=== PATIENT | male | born 1960 | race Caucasian/White ===

== ENCOUNTER → 2017-01-28 | Outpatient (CLI) | payer OTHER ==
[~2017-01-28] MED LIST: ALBUTEROL17 GM INH; ALLEGRA PO; ALLERGY SHOT; ASPIRIN325 M1 PO; ASPIRIN81 MG PO; BENZONATATE PO; CERTAGEN PO; CLARITIN D PO; CLARITIN R10 MG REDI PO; CLARITIN10 M2 PO; CRESTOR PO; DILTIAZEM 24HR120 MG PO; DOCUSATE SODIU100 MG PO; FENOFIBRATE134 MG PO; FERROUS GL324 ( 36 ) PO; HYCODAN60 ML 5MG/ PO; HYDROCODON-ACE1 EAC5 PO; HYDROXYZINE HCL10 MG PO; IBUPROFEN800 MG PO; INVOKANA300 MG PO; JANUVIA PO; KCL PO; LIPOFEN50 MG PO; LO-DOSE ASPIRIN81 M1 PO; LORTAB 5/500 TA1 TA1; LORTAB 5/500 TA1 TA2; METFORMIN HCL500 M1; METOPROLOL TAR25 MG PO; MONTELUKAST SOD10 MG PO; MOTRIN400 MG PO; MULTI-DAY VITAM1 TAB PO; NEXIUM PO; NITROGLYGERIN0.4 MG SL; NITROSTAT0.4 MG SL; NORCO 10-325 TA1 TAB PO; OMEPRAZOLE20 M2 PO; OYSTER CALCIUM500 MG PO; PLAVIX PO; PREDNISONE10 MG/DOSE PO; PRILOSEC20 MG; PRILOSEC20 MG PO; PRINIVIL20 M1 PO; SINGULAIR PO; TRIPLEX PO; TUSSIONEX PENN473 ML PO; VASCEPA1 GM PO; VITAMIN D250000 UNIT PO; VITAMIN D50000 UNIT PO; ZANTAC PO; ZESTRIL10 M1 PO; ZESTRIL5 MG PO; ZITHROMAX PO; ZOCOR PO
[2017-01-28 15:16] LABS: HEMATOCRIT 48.4 % (38.0-50.0); HEMOGLOBIN 15.9 gm/dL (13.0-16.0); MEAN CORPUSCULAR HEMOGLOBIN 30.6 PG (28-34); MEAN CORPUSCULAR HGB CONC 32.9 g/dL (30-36); MEAN PLATELET VOLUME 8.6 FL (6.5-11.5); RED BLOOD COUNT 5.21 X10e (3.90-5.60); WHITE BLOOD COUNT 6.9 X10e3 (4.0-10.5)
[2017-01-28 15:47] LABS: BLOOD UREA NITROGEN 15 mg/dL (9-23); BUN/CREATININE RATIO 18.75; CALCIUM SERUM 8.9 mg/dL (8.4-10.2); CARBON DIOXIDE 24 mmol/L (22-31); CHLORIDE 103 mmol/L (100-111); CREATININE SERUM 0.8 mg/dL (0.6-1.4); GLOM FILT RATE Estimated ABOVE60 mL/min (>60); GLUCOSE FASTING 235 mg/dL (70-110); POTASSIUM 4.3 mmol/L (3.5-5.1); SODIUM 135 mmol/L (135-145)
== END | disposition home or self-care (01) ==
LOC: CAMB 13:33
PROVIDERS: Surgery
DX: Z01.812 Encounter for preprocedural laboratory examination (principal)
CPT/HCPCS: 36415; 80048; 85027

== ENCOUNTER → 2017-02-05 | Day surgery (SDC) | payer OTHER ==
--- NOTE | ~2017-02-05 | OR ---
Unit #: [id number] #: [id number] Patient: RAZ WELDON [id number] [address] [place], [place] [address] [id number] O MR#: [id number] NAME: RAZ WELDON ROOM: Date of Procedure: 02/05/2017 Admission Date: 02/05/2017 Surgeon: Eyad Fernandez Jr., M.D. : 1960 Attending Physician: Eyad Fernandez Jr., M.D. Primary Care Physician: Ninfa Solorio, [place] OPERATIVE REPORT INDICATIONS FOR PROCEDURE The patient is a 56-year-old white male, who has been having intermittent rectal bleeding. He has been worked up and noted to have evidence of large prolapsing internal hemorrhoids as well as several small external hemorrhoids. It was felt that he should have a hemorrhoidal stapling with hemorrhoidectomy. He was brought in this time for this procedure at his request. He understands the procedure including the risks including that of infection, bleeding, and recurrence of his hemorrhoids and consents. PREOPERATIVE DIAGNOSIS Bleeding internal and external hemorrhoids. POSTOPERATIVE DIAGNOSIS Bleeding internal and external hemorrhoids, noting large dilated internal hemorrhoids with two dilated external hemorrhoids. ANESTHESIA General with endotracheal intubation, 0.25% Marcaine with epinephrine as a perianal block. PROCEDURES PERFORMED Hemorrhoidal stapling with mucosectomy and external hemorrhoidectomy x2. DESCRIPTION OF PROCEDURE The patient was positioned in the supine position. After being anesthetized and intubated, he was placed in prone position, prepped and draped in routine fashion with raz-knife type position for hemorrhoidal stapling. Perianal block was performed with 0.25% Marcaine with epinephrine. An anal dilatation performed up to 4 fingerbreadths slowly. After the anal canal was dilated, the retractor was placed and the retractor was sutured in place with interrupted 2-0 silk sutures as routine. The internal retractor was placed and 0 Prolene pursestring was placed circumferentially. Additional 0 Prolene stitch was placed at the 6 o'clock position. The stapler was placed up into the rectum and the pursestring tightened around the stem of the stapler. It was then tied, stapler close fired, and removed with an excellent staple line visible. There was a small amount of oozing at the 6 o'clock position, which was controlled with [id number] 4-0 Vicryl stitch. After total hemostasis was noted, the tissue from the stapler was removed and sent to pathology. There was an excellent ring present, and the retracting device was removed when no bleeding was noted. There were two external hemorrhoids, which Unit #: [id number] #: [id number] Patient: RAZ WELDON were dilated and 2-0 chromic stitch was placed at the internal apex of the internal hemorrhoids, and the hemorrhoid was clamped to the base and then the hemorrhoid excised, and the 2-0 chromic stitch was run with a locking stitch from internal to external areas. After two external hemorrhoids removed and sent to pathology, the area was again checked. There was no evidence of any bleeding at all. The anal canal was packed with Gelfoam soaked with viscous Xylocaine. Sterile dressings were applied externally. Estimated blood loss was less than 20 mL. The patient received less than 1000 mL of crystalloid solution during the procedure. Sponges and instrument counts were correct x3. No drains were used. No complications. The patient was taken to the recovery room with stable vital signs in satisfactory condition. Dictated by... Eyad Fernandez Jr., MLeela NAVARRO/mayra TD: 02/06/2017 00:28 JOB #: [id number] OPERATIVE REPORT Page 1 of 1 X Eyad Fernandez MD X PROCEDURE OPERATIVE NOTE
== END | disposition home or self-care (01) ==
LOC: CSUR 05:29
DX: K64.8 Other hemorrhoids (principal); K64.4 Residual hemorrhoidal skin tags; J45.909 Unspecified asthma, uncomplicated; I25.10 Atherosclerotic heart disease of native coronary artery without angina pectoris; I10 Essential (primary) hypertension; E11.9 Type 2 diabetes mellitus without complications; E78.5 Hyperlipidemia, unspecified; M19.90 Unspecified osteoarthritis, unspecified site; I25.2 Old myocardial infarction; Z95.1 Presence of aortocoronary bypass graft; Z90.89 Acquired absence of other organs; Z87.19 Personal history of other diseases of the digestive system; Z88.6 Allergy status to analgesic agent; Z87.01 Personal history of pneumonia (recurrent); Z95.5 Presence of coronary angioplasty implant and graft; Z87.891 Personal history of nicotine dependence; Z79.82 Long term (current) use of aspirin; Z79.891 Long term (current) use of opiate analgesic; Z79.899 Other long term (current) drug therapy; Z91.041 Radiographic dye allergy status
CPT/HCPCS: 82947; 88304; J0330; J1100; J1170; J1885; J2250; J2710; J3010

== ENCOUNTER 2017-03-09 14:36 | Emergency (ER) | payer OTHER ==
[~2017-03-09 14:36] MED LIST changes: -PRINIVIL20 M1 PO
== END 2017-03-09 14:48 | disposition home or self-care (01) ==
LOC: SED 14:36
DX: S00.81XA Abrasion of other part of head, initial encounter (principal); F17.210 Nicotine dependence, cigarettes, uncomplicated; X58.XXXA Exposure to other specified factors, initial encounter; Y92.009 Unspecified place in unspecified non-institutional (private) residence as the place of occurrence of the external cause
CPT/HCPCS: 99283

== ENCOUNTER → 2017-03-11 | Outpatient (CLI) | payer OTHER ==
[~2017-03-11] MED LIST changes: +PRINIVIL20 M1 PO
--- NOTE | ~2017-03-11 | CR151 ---
[facility]. [facility] A Service of [facility] RADIOLOGY TEXT RESULTS PATIENT: RAZ WELDON LOCATION: [facility] : 64 UNIT #: [id number] AGE: [address]: NINFA SOLORIO APRN SEX: M ORDER DR: [id number] [address] [address] [id number] O MR#: [id number] Acc #: [id number] NAME: RAZ WELDON : 1960 SEX: M STUDY DATE/TIME: 03/11/2017 11:15 UNIT: SRAD ROOM: STUDY DESCRIPTION: CR Hip Min 2 Views Rt Attending Physician: Ninfa Solorio Aprn Referring Physician: Ninfa Solorio Aprn Ordering Physician: Ninfa Solorio Aprn Primary Care Physician: Ninfa Solorio Aprn MEDICAL IMAGING REPORT This report is preliminary unless electronic signature is present. EXAM Right hip 03/11/2017 HISTORY 56-year-old male with right hip pain since 02/28/2017 COMPARISON STUDIES None FINDINGS 3 views of the right hip demonstrate no acute fracture or dislocation. Mild degenerative changes noted in both hips. Bony pelvis intact. Sacrum and SI joints intact. Soft tissues are unremarkable. IMPRESSION No acute fracture or dislocation. Mild bilateral hip arthrosis. Dictated by... Humberto Vale M.D. THIS IS AN ELECTRONICALLY VERIFIED REPORT Humberto Vale M.D. at 03/12/2017 6:38 PM Kimmie TD: 03/11/2017 17:56 JOB #: [id number] MEDICAL IMAGING REPORT Page 1 of 1
--- NOTE | ~2017-03-11 | CR63 ---
[facility]. [facility] A Service of [facility] RADIOLOGY TEXT RESULTS PATIENT: RAZ WELDON LOCATION: [facility] : 64 UNIT #: [id number] AGE: [address]: NINFA SOLORIO APRN SEX: M ORDER DR: [id number] [address] [address] [id number] O MR#: [id number] Acc #: [id number] NAME: RAZ WELDON : 1960 SEX: M STUDY DATE/TIME: 03/11/2017 11:15 UNIT: [facility] ROOM: STUDY DESCRIPTION: CR Chest 2 View Attending Physician: Ninfa Solorio Aprn Referring Physician: Ninfa Solorio Aprn Ordering Physician: Ninfa Solorio Aprn Primary Care Physician: Ninfa Solorio Aprn MEDICAL IMAGING REPORT This report is preliminary unless electronic signature is present. EXAM 2 view chest 03/11/2017 HISTORY 56-year-old male with right-sided chest pain since 02/28/2017. COMPARISON STUDIES Comparison chest 01/23/2015 FINDINGS 2 views of the chest demonstrate clear lungs. No pleural effusion or pneumothorax. Heart size and mediastinum within normal limits. Pulmonary vasculature unremarkable. Median sternotomy wires. IMPRESSION No acute cardiopulmonary findings. Dictated by... Humberto Vale M.D. THIS IS AN ELECTRONICALLY VERIFIED REPORT Humberto Vale M.D. at 03/12/2017 6:38 PM Kimmie TD: 03/11/2017 17:59 JOB #: [id number] MEDICAL IMAGING REPORT Page 1 of 1
== END | disposition home or self-care (01) ==
LOC: SRAD 11:06
DX: R26.2 Difficulty in walking, not elsewhere classified (principal); R07.9 Chest pain, unspecified; M16.11 Unilateral primary osteoarthritis, right hip
CPT/HCPCS: 71020; 73502

== ENCOUNTER 2017-05-16 17:10 | Emergency (ER) | payer OTHER ==
--- NOTE | ~2017-05-16 | EKG ---
PATIENT: RAZ WELDON UNIT #: [id number] Ventricular Rate: 70 BPM Atrial Rate: 70 BPM P-R Interval: 158 ms QRS Duration: 88 ms Q-T Interval: 380 ms QTC Calculation(Bezet): 410 ms P [place]: 30 degrees Calculated R [place]: 54 degrees Calculated T [place]: 76 degrees Diagnosis Line: Normal sinus rhythm Diagnosis Line: Normal ECG Diagnosis Line: When compared with ECG of 03-AUG-2014 10:16, Diagnosis Line: No significant change was found Diagnosis Line: Confirmed by SHAGUFTA LOOMIS MD ([id number]) on Diagnosis Line: 05/17/2017 5:29:26 PM INTERPRETING MD: EBONIE GÓMEZ
--- NOTE | ~2017-05-16 | CT71 ---
[facility] A Service of [facility] RADIOLOGY TEXT RESULTS PATIENT: RAZ WELDON LOCATION: SED : 64 UNIT #: [id number] AGE: [address]: Art Espinal MD SEX: M ORDER DR: [id number] [address] [address] [id number] MR#: [id number] Acc #: [id number] NAME: RAZ WELDON : 1960 SEX: M STUDY DATE/TIME: 05/16/2017 19:36 UNIT: SED ROOM: STUDY DESCRIPTION: CT Head Wo Contrast Attending Physician: Art Espinal M.D. Ordering Physician: Art Espinal M.D. Primary Care Physician: Ninfa Solorio Aprn MEDICAL IMAGING REPORT This report is preliminary unless electronic signature is present. EXAM CT brain without contrast. HISTORY Frontal headache and blurred vision, and hypertension and dizzy today. TECHNIQUE This CT exam was performed with one or more of the following radiation dose reduction techniques: automatic exposure control, adjustment of mA and/or kV according to patient size, and iterative reconstruction. FINDINGS Axial noncontrast images were obtained from the skull base to the vertex. Ventricular size and configuration are normal. There is no evidence of acute infarct or hemorrhage. There are no extra-axial fluid collections. No mass lesion or mass effect is seen. There are no skull fractures. IMPRESSION Normal noncontrast head CT. Dictated by... Lucas Mclean M.D. THIS IS AN ELECTRONICALLY VERIFIED REPORT Lucas Mclean M.D. at 05/17/2017 11:23 PM SAVANA/julia TD: 05/16/2017 22:43 JOB #: [id number] [facility] A Service of [facility] RADIOLOGY TEXT RESULTS PATIENT: RAZ WELDON LOCATION: SED : 64 UNIT #: [id number] AGE: [address]: Art Espinal MD SEX: M ORDER DR: MEDICAL IMAGING REPORT Page 1 of 1
[~2017-05-16 17:10] MED LIST changes: -PRINIVIL20 M1 PO
[2017-05-16] MEDS ORDERED: PRINIVIL20 M1 PO (17:16)
[2017-05-16 19:06] LABS: BASOPHIL# 0.1 X10e3 (0-0.3); BASOPHIL% 1.2 % (0-2.5); EOSINOPHIL# 0.1 X10e3 (0-0.7); EOSINOPHIL% 1.1 % (0.0-7.0); HEMATOCRIT 45.7 % (38.0-50.0); HEMOGLOBIN 15.5 gm/dL (13.0-16.0); LYMPHOCYTE# 1.1 X10e3 (1.0-3.5); LYMPHOCYTE% 9.4 % (17.0-45.0); MEAN CELL VOLUME 90.9 FL (83-96); MEAN CORPUSCULAR HEMOGLOBIN 30.8 PG (28-34); MEAN CORPUSCULAR HGB CONC 33.8 g/dL (30-36); MEAN PLATELET VOLUME 8.5 FL (6.5-11.5); MONOCYTE% 8.8 % (3.0-12.0); NEUTROPHIL# 8.9 X10e3 (1.5-7.1); NEUTROPHIL% 79.5 % (40-75); PLATELET COUNT 220 X10e3 (140-420); RED BLOOD COUNT 5.03 X10e (3.90-5.60); RED CELL DISTRIBUTION WIDTH 13.7 % (11.0-15.5); WHITE BLOOD COUNT 11.3 X10e3 (4.0-10.5)
[2017-05-16 19:07] LABS: DIFF IND NO
[2017-05-16 19:24] LABS: ALBUMIN SERUM 4.1 g/dL (3.5-5.0); BILIRUBIN, DIRECT 0.1 mg/dL (0.0-0.2); BILIRUBIN,INDIRECT 0.5 mg/dL (0.0-0.9); BILIRUBIN,TOTAL 0.6 mg/dL (0.2-2.0); CALCIUM SERUM 8.6 mg/dL (8.4-10.2); CREATININE SERUM 0.8 mg/dL (0.6-1.4); GLOM FILT RATE Estimated 101.3 mL/min (>60); PROTEIN TOTAL SERUM 7.2 g/dL (6.0-8.3)
[2017-05-16 19:32] LABS: URINE SOURCE CLEAN CATCH
[2017-05-16 19:33] LABS: POC - CKMB <1.0 ng/mL (0.0-7.9); POC - TROPONIN <0.05 ng/mL (<=0.05)
[2017-05-16 19:34] LABS: URINE APPEARANCE CLEAR; URINE BILIRUBIN NEG (NEG); URINE BLOOD NEG (NEG); URINE COLOR YELLOW; URINE GLUCOSE 300 MG/DL (NORM); URINE KETONE NEG (NEG); URINE LEUKOCYTE ESTERASE NEG (NEG); URINE NITRATE NEG (NEG); URINE PH 5.5 (5-8); URINE PROTEIN NEG (NEG); URINE SPECIFIC GRAVITY 1.025 (1.003-1.035); URINE UROBILINOGEN 0.2 MG/DL (NORM)
[2017-05-16 19:37] LABS: MICRO INDICATED? NO
== END 2017-05-16 20:28 | disposition home or self-care (01) ==
LOC: SED 17:10
PROVIDERS: Emergency Medicine
DX: R51 Headache (principal); R42 Dizziness and giddiness; E11.9 Type 2 diabetes mellitus without complications; E78.5 Hyperlipidemia, unspecified; I10 Essential (primary) hypertension; Z95.1 Presence of aortocoronary bypass graft; F17.210 Nicotine dependence, cigarettes, uncomplicated
CPT/HCPCS: 36415; 70450; 80048; 80076; 81003; 82553; 84484; 85025; 93005; 99284